=== PATIENT | female | born 1970 | race Caucasian/White ===

== ENCOUNTER 2023-05-20 09:07 | Day surgery (SDC) | payer OTHER ==
[2023-05-15 16:26] VITALS: BMI 47.8
[2023-05-20 09:30] VITALS: RESP 16
[2023-05-20] MEDS ORDERED: PHENYLEPHRINE HCL 10 MG/1 ML SINGLE DOSE VIAL ONE (10:58)
[2023-05-20 11:22] VITALS: TEMP 97.4
[2023-05-20 11:42] VITALS: BP 120/86; PULSE 79
== END 2023-05-20 11:42 | disposition home or self-care (01) ==
LOC: FASU-ENDO 09:07
PROVIDERS: ATTEND Internal Medicine Gastroenterology
PROC: 0DB98ZX Excision of Duodenum, Via Natural or Artificial Opening Endoscopic, Diagnostic (ICD-10-PCS; 2023-05-20)
PROC: 0DB68ZX Excision of Stomach, Via Natural or Artificial Opening Endoscopic, Diagnostic (ICD-10-PCS; 2023-05-20)
PROC: 0DJD8ZZ Inspection of Lower Intestinal Tract, Via Natural or Artificial Opening Endoscopic (ICD-10-PCS; principal; 2023-05-20 10:46)
DX: Z12.11 Encounter for screening for malignant neoplasm of colon (principal); Z13.810 Encounter for screening for upper gastrointestinal disorder; K29.50 Unspecified chronic gastritis without bleeding
CPT/HCPCS: 43239; G0121; 81025; 88305-TC; 88342-TC